=== PATIENT | male | born 2000 | race Caucasian/White ===

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

== ENCOUNTER 2019-10-08 14:38 | Emergency (ER) | payer BC ==
[~2019-10-08] VITALS: Ht 190.5 cm; Wt 59.0 kg
[~2019-10-08 14:38] MED LIST: ABILIFY15 MG PO; Motrin,Rufen800 MG PO
[2019-10-08] MEDS ORDERED: AMOXICILLIN500 M2 PO (16:00)
== END 2019-10-08 16:18 | disposition home or self-care (01) ==
LOC: ED 14:38
DX: J32.9 Chronic sinusitis, unspecified (principal); J02.9 Acute pharyngitis, unspecified; F17.200 Nicotine dependence, unspecified, uncomplicated; Z91.013 Allergy to seafood; Z79.899 Other long term (current) drug therapy

== ENCOUNTER 2023-02-07 22:01 | Emergency (ER) | payer BC ==
[~2023-02-07] VITALS: Ht 190.5 cm; Wt 61.2 kg
[~2023-02-07 22:01] MED LIST changes: +AMOXICILLIN500 M2 PO
[2023-02-07] MEDS ORDERED: VIBRAMYCIN100 MG PO (23:53)
== END 2023-02-08 00:39 | disposition home or self-care (01) ==
LOC: ED 22:01
DX: S61.214A Laceration without foreign body of right ring finger without damage to nail, initial encounter (principal); Z91.013 Allergy to seafood; W22.8XXA Striking against or struck by other objects, initial encounter; Y93.89 Activity, other specified; Y92.89 Other specified places as the place of occurrence of the external cause; Y99.8 Other external cause status

== ENCOUNTER 2024-12-09 20:16 | Emergency (ER) | payer BC ==
[~2024-12-09] VITALS: Ht 190.5 cm; Wt 63.5 kg
[~2024-12-09 20:16] MED LIST changes: +VIBRAMYCIN100 MG PO
[2024-12-09 20:54] LABS: BASO % 0.5 % (0.0-1.0); EOS % 0.5 % (1.0-4.0); HEMATOCRIT 41.7 % (42.0-52.0); MEAN CELL VOLUME 92.9 fl (80.0-94.0); MEAN CORPUSCULAR HGB 32.3 pg (27.0-31.0); MEAN CORPUSCULAR HGB CONC 34.8 g/dl (33.0-37.0); MEAN PLATELET VOLUME 9.6 fl (9.6-12.3); MONO # 0.4 10*3/uL (0.1-1.0); MONO % 6.4 % (3.0-9.0); NEUT # 3.7 10*3/uL (2.3-7.9); NEUT % 63.3 % (47.0-73.0); PLATELET COUNT AUTOMATED 260 10*3/uL (130-400); RED BLOOD COUNT 4.49 10*6/uL (4.50-5.90); RED CELL DISTRI WIDTH 11.2 % (0-14.5); WHITE BLOOD COUNT 5.8 10*3/uL (4.8-10.8)
[2024-12-09 21:13] LABS: BUN 5 mg/dl (9-23); CHLORIDE 104 mmol/L (98-107); POTASSIUM 3.4 mmol/L (3.4-5.1)
[2024-12-09 21:18] LABS: BILIRUBIN Negative (Negative); BLOOD Negative (Negative); CLARITY Clear (Clear); COLOR Yellow (Yellow); GLUCOSE Negative (Negative); KETONE Negative (Negative); LEUKO ESTERASE Negative (Negative); NITRITE Negative (Negative); PH 7.5 (4.5-8.0); SPECIFIC GRAVITY <= 1.005 (1.001-1.030); UROBILINOGEN 0.2 E.U./dl (0.0-1.0)
[2024-12-09 21:40] LABS: EPITHELIAL CELLS 0-2
== END 2024-12-09 22:52 | disposition home or self-care (01) ==
LOC: ED 20:16
PROVIDERS: Internal Medicine
DX: R35.0 Frequency of micturition (principal); Z79.899 Other long term (current) drug therapy; Z91.013 Allergy to seafood